=== PATIENT | female | born 1960 | race Caucasian/White ===

== ENCOUNTER → 2020-10-14 09:40 | Outpatient (BNVA) | payer OTHER, MEDICAID, SELFPAY | PROVIDERS: PCP Family Medicine Adult Medicine; Visit Provider Family Medicine Adult Medicine | DX: F32.9 Major depressive disorder, single episode, unspecified (principal); E66.01 Morbid (severe) obesity due to excess calories; F41.9 Anxiety disorder, unspecified; Z68.42 Body mass index [BMI] 45.0-49.9, adult; Z86.010 Personal history of colon polyps; K21.9 Gastro-esophageal reflux disease without esophagitis; K44.9 Diaphragmatic hernia without obstruction or gangrene; Z13.6 Encounter for screening for cardiovascular disorders; M79.7 Fibromyalgia | CPT/HCPCS: 80053; 80061; 83036; 84443; 85025 ==

== ENCOUNTER → 2020-12-30 09:04 | Outpatient (BNVA) | payer OTHER, SELFPAY | PROVIDERS: PCP Family Medicine Adult Medicine; Visit Provider Surgery | DX: Z20.822 Contact with and (suspected) exposure to COVID-19 (principal) | CPT/HCPCS: 87635 ==

== ENCOUNTER 2021-01-06 11:00 | Day surgery (SDC) | payer OTHER, MEDICAID, SELFPAY ==
[2021-01-04 10:29] VITALS: BMI 44.1
--- NOTE | 2021-01-06 11:15 | ANES.PREANE2 ---
Pre-Anesthetic Assessment Pre-Anesthetic Assessment: Height/Weight: Height 1.7 m Weight 122.924 kg Proposed Procedure: Operation Date: 01/06/21 12:30 Proposed Procedures p Colonoscopy 02415 Z86.010(Not Applicable) - Vishal Little MD Was Beta Flaco taken within 24 hours: N/A Was Clonidine taken within 24 hours: N/A Social: Social History: No alcohol and No tobacco Exam: Pre-Anes Outpt Exam: alert, oriented x 3, clear to auscultation bilaterally and regular rate & rhythm Airway: Submandibular: WNL Cervical ROM: WNL MP: 1 History/ROS: No significant complaints Pulmonary: Pulmonary: SOB CV/HEM: CV/HEM: None reported : : None reported Hepatic: Hepatic: None reported GI: GI: None reported Metabolic: Metabolic: DM and Hyperlipidemia Musc/skel: Musc/skel: None reported Neuropsych: Neuropsych: None reported Anesthetic Plan: ASA status: 3 Anesthesia: MAC Risk of > 500 ml blood loss (7ml/kg in children): No PFSH Anesthesia PFSH: Medical History (Updated 10/26/20 @ 08:50 by Vishal Little MD) Anxiety and depression COVID-19 DDD (degenerative disc disease) Fibromyalgia GERD (gastroesophageal reflux disease) Hiatal hernia Hx of colonic polyps Hyperlipidemia due to type 2 diabetes mellitus Hypothyroidism New onset type 2 diabetes mellitus Surgical History (Updated 10/26/20 @ 08:50 by Vishal iLttle MD) History of colonoscopy with polypectomy (~2015) History of esophagogastroduodenoscopy (EGD) (~2015) History of laparoscopic cholecystectomy History of tubal ligation S/P excision of lipoma Family History Mother Fibromyalgia Sister Fibromyalgia Other Asthma Social History Alcohol intake: current Alcohol intake frequency: holidays/special occasions only Household members: family Current occupational status: unemployed and disabled Data Anesthesia Cardiac Studies: No Data to Display
--- NOTE | 2021-01-06 11:23 | W.PM.OPSFHP ---
Same Day Surgery H&P Indication for Procedure/HPI DATE OF PROCEDURE: January 06, 2021 CHIEF COMPLAINT/INDICATIONFOR SURGICAL PROCEDURE: colon polyps PREOP DIAGNOSIS: colonoscopy PLANNED PROCEDRUE: Operation Date: 01/06/21 12:30 Proposed Procedures p Colonoscopy 31280 Z86.010(Not Applicable) - Vishal Little MD Medications/Allergies* Home Medications Medication Instructions Recorded Confirmed Type cholecalciferol (vitamin D3) 10 10 mcg PO DAILY 10/22/20 01/05/21 History mcg (400 unit) capsule liver extract 1 tab PO DAILY 10/22/20 01/05/21 History magnesium chloride 1 tab PO DAILY PRN 10/22/20 01/05/21 History potassium chloride 1 tab PO DAILY 10/22/20 01/05/21 History zinc acetate 1 tab PO DAILY 10/22/20 01/05/21 History Allergies/Adverse Reactions Allergy/AdvReac Type Severity Reaction Status Date / Time gabapentin AdvReac Unknown Verified 01/05/21 09:11 Pertinent History/Comorbid Conditions* Medical History (Updated 10/26/20 @ 08:50 by Vishal Little MD) Anxiety and depression COVID-19 DDD (degenerative disc disease) Fibromyalgia GERD (gastroesophageal reflux disease) Hiatal hernia Hx of colonic polyps Hyperlipidemia due to type 2 diabetes mellitus Hypothyroidism New onset type 2 diabetes mellitus Surgical History (Updated 10/26/20 @ 08:50 by Vishal Little MD) History of colonoscopy with polypectomy (~2015) History of esophagogastroduodenoscopy (EGD) (~2015) History of laparoscopic cholecystectomy History of tubal ligation S/P excision of lipoma Family History (Updated 10/14/20 @ 08:47 by Brigid Everett LPN) Fibromyalgia Mother Sister Asthma Social History Alcohol intake: current Alcohol intake frequency: holidays/special occasions only Household members: family Current occupational status: unemployed and disabled Pertinent Exam Findings alert, oriented x 3 and regular rate & rhythm Recommendations Surgery/Procedure today Coding Level of Care Code Acute Dixonac Operator for Gumarog Frederick
[2021-01-06 11:44] VITALS: BP 121/86; PULSE 107; RESP 20; TEMP 36.1; O2SAT 95
[2021-01-06] MEDS: sodium chloride 0.9% 1,000 ML 30 ML IV (11:54)
[2021-01-06 12:53] LABS: Glucose Point of Care 95 mg/dL (70-110)
[2021-01-06 13:27] VITALS: BP 98/66; PULSE 80; RESP 16; TEMP 36.1; O2SAT 96
[2021-01-06 13:36] VITALS: BP 106/84; PULSE 76; RESP 18; TEMP 36.3; O2SAT 98
== END 2021-01-06 14:10 | disposition home or self-care (01) ==
PROVIDERS: PCP Family Medicine Adult Medicine; Visit Provider Surgery
PROC: 0DJD8ZZ Inspection of Lower Intestinal Tract, Via Natural or Artificial Opening Endoscopic (ICD-10-PCS; CPT 45378; principal; 2021-01-06 12:30)
DX: Z86.010 Personal history of colon polyps (principal); D12.5 Benign neoplasm of sigmoid colon; D12.4 Benign neoplasm of descending colon; K21.9 Gastro-esophageal reflux disease without esophagitis; K57.30 Diverticulosis of large intestine without perforation or abscess without bleeding; K64.8 Other hemorrhoids; E11.9 Type 2 diabetes mellitus without complications; E03.9 Hypothyroidism, unspecified; M79.7 Fibromyalgia; Z90.49 Acquired absence of other specified parts of digestive tract; Z98.51 Tubal ligation status; Z82.69 Family history of other diseases of the musculoskeletal system and connective tissue
CPT/HCPCS: 36416; 45380; 45385; 82962; 88305; 96360; J2704; J7030

== ENCOUNTER → 2021-01-21 08:41 | Outpatient (BNVA) | payer OTHER, MEDICAID, SELFPAY | PROVIDERS: PCP Family Medicine Adult Medicine; Visit Provider Family Medicine Adult Medicine | DX: E11.69 Type 2 diabetes mellitus with other specified complication (principal); E78.5 Hyperlipidemia, unspecified; F41.9 Anxiety disorder, unspecified; F32.9 Major depressive disorder, single episode, unspecified; D49.2 Neoplasm of unspecified behavior of bone, soft tissue, and skin; E03.9 Hypothyroidism, unspecified; R94.4 Abnormal results of kidney function studies | CPT/HCPCS: 80053; 80061; 83036; 88304 ==

== ENCOUNTER → 2021-03-21 13:11 | Outpatient (BNVA) | payer MEDICAID, SELFPAY | PROVIDERS: PCP Family Medicine Adult Medicine; Referring Provider Family Medicine Adult Medicine; Visit Provider Specialist | DX: M25.551 Pain in right hip (principal) | CPT/HCPCS: 73502 ==

== ENCOUNTER → 2021-03-31 08:45 | Outpatient (BNVA) | payer MEDICAID, SELFPAY | PROVIDERS: PCP Family Medicine Adult Medicine; Visit Provider Orthopaedic Surgery | DX: M47.896 Other spondylosis, lumbar region (principal); M54.50 Low back pain, unspecified | CPT/HCPCS: 72110 ==

== ENCOUNTER → 2021-04-14 09:18 | Outpatient (BNVA) | payer MEDICAID, SELFPAY | PROVIDERS: PCP Family Medicine Adult Medicine; Visit Provider Anesthesiology Pain Medicine | DX: G89.29 Other chronic pain (principal); M47.816 Spondylosis without myelopathy or radiculopathy, lumbar region; M51.36 Other intervertebral disc degeneration, lumbar region; M53.3 Sacrococcygeal disorders, not elsewhere classified; M25.551 Pain in right hip; Z87.891 Personal history of nicotine dependence | CPT/HCPCS: 99205 ==

== ENCOUNTER → 2021-05-04 13:36 | Outpatient (BNVA) | payer MEDICAID, SELFPAY | PROVIDERS: PCP Family Medicine Adult Medicine; Visit Provider Anesthesiology Pain Medicine | DX: E11.9 Type 2 diabetes mellitus without complications (principal); Z87.891 Personal history of nicotine dependence; M47.816 Spondylosis without myelopathy or radiculopathy, lumbar region | CPT/HCPCS: 36416; 64493; 64494; 64495; 80053; 80061; 82962; 83036; 84443; J3490 ==

== ENCOUNTER 2021-05-12 10:27 | Outpatient (CLI) | payer MEDICAID, SELFPAY ==
--- NOTE | 2021-05-12 11:00 | MR_ITS ---
WS: [id number] MRI LUMBAR SPINE NONCONTRAST TECHNIQUE: Sagittal T1, T2 and STIR imaging. Axial T1 and T2 imaging. CLINICAL INFORMATION: M54.50 - Low back pain, unspecified COMPARISON: None. FINDINGS: Mild lumbar curve. No acute compression. No high-grade central canal stenosis. Mild disc bulging L3-L 4 L4-L5 and L5-S1. Mild disc bulging in the cervical spine at C4-C5 with mild central canal stenosis. L1-L2: Normal. L2-L3: No significant disc bulging. Mild facet arthropathy. Spinal canal and foramen are patent. L3-L4: Mild annular bulging. Mild to moderate facet arthropathy. Spinal canal and foramen are patent. L4-L5: Mild disc bulging with slight effacement of the ventral thecal sac. Moderate facet arthropathy . Small bilateral foraminal protrusions with mild LEFT greater than RIGHT foraminal narrowing. Slight impingement traversing LEFT L5 nerve root. Moderate facet arthropathy. L5-S1: Mild annular bulging with a tiny shallow central protrusion. Spinal canal and foramen are chinchilla nt. Mild facet arthropathy. Visualized pelvic bony structures: Normal. Paravertebral soft tissues: Normal. MR/MR lumbar spine wo con* [id number] IMPRESSION: 1. Mild lumbar curve. No acute compression. No high-grade central canal stenos is. 2. Mild annular bulging L4-L5 with slight impingement on the LEFT subarticular recess and traversing LEFT L5 nerve root. 3. Small bilateral foraminal protrusions L4-L5 with mild LEFT greater than RIG HT foraminal narrowing. 4. Moderate facet arthropathy L3-L4 and L4-L5. 5. Tiny shallow central protrusion L5-S1 6. Mild central canal stenosis in the cervical spine on basketball scout imaging with a s mall central protrusion at C4-C5.
== END 2021-05-12 10:28 | disposition home or self-care (01) ==
LOC: RAD 10:31
PROVIDERS: PCP Family Medicine Adult Medicine; Visit Provider Orthopaedic Surgery
DX: M51.26 Other intervertebral disc displacement, lumbar region (principal); M47.816 Spondylosis without myelopathy or radiculopathy, lumbar region; M51.27 Other intervertebral disc displacement, lumbosacral region; M48.02 Spinal stenosis, cervical region; M50.221 Other cervical disc displacement at C4-C5 level
CPT/HCPCS: 72148

== ENCOUNTER → 2021-05-23 10:03 | Outpatient (BNVA) | payer MEDICAID, SELFPAY | PROVIDERS: PCP Family Medicine Adult Medicine; Visit Provider Anesthesiology Pain Medicine | DX: M48.062 Spinal stenosis, lumbar region with neurogenic claudication (principal); M47.816 Spondylosis without myelopathy or radiculopathy, lumbar region; M51.36 Other intervertebral disc degeneration, lumbar region; M53.3 Sacrococcygeal disorders, not elsewhere classified; M25.559 Pain in unspecified hip; Z87.891 Personal history of nicotine dependence | CPT/HCPCS: 99214 ==

== ENCOUNTER 2021-07-20 08:10 | Day surgery (SDC) | payer MEDICAID, SELFPAY ==
[2021-07-15 09:30] VITALS: BMI 44.4
--- NOTE | 2021-07-15 10:49 | ANES.PREANE2 ---
Pre-Anesthetic Assessment Height/Weight: Height 1.7 m Weight 128.82 kg Preop Diagnosis: diagnostic Operation Date: 07/20/21 07:00 Proposed Procedures p Lumbar Decompression L4/5 63258/m48.062(Not Applicable) - Alex Vazquez DO Familial anesthetic complications: None Was Beta Flaco taken within 24 hours: N/A Was Clonidine taken within 24 hours: N/A Social Tobacco (tyler) and No alcohol Exam alert, oriented x 3 and regular rate & rhythm Airway Submandibular: within normal limits Cervical ROM: within normal limits Mallampati: Class II Dentition: chipped (lower) and false Pulmonary Chronic Obstructive Pulmonary Disease Chronic Renal Insufficiency Metabolic Diabetes Mellitus, Morbid Obesity and Thyroid Disease Musc/skel Fibromyalgia, Lower Back Pain and Osteoarthritis/DJD Neuropsych Anxiety Anesthetic Plan ASA status: 3 Anesthesia: General Medications/Allergies Home Medications Medication Instructions Recorded Confirmed Last Taken Type cholecalciferol (vitamin D3) 10 10 mcg PO DAILY 10/22/20 07/15/21 01/05/21 History mcg (400 unit) capsule liver extract 1 tab PO DAILY 10/22/20 07/15/21 01/05/21 History magnesium chloride 1 tab PO DAILY PRN 10/22/20 07/15/21 01/05/21 History zinc acetate 1 tab PO DAILY 10/22/20 07/15/21 01/05/21 History atorvastatin 40 mg tablet 40 mg PO DAILY #30 tab 01/21/21 07/15/21 Unknown Rx niacin 50 mg tablet 50 mg PO DAILY 01/21/21 07/15/21 Unknown History potassium chloride 1 tab PO DAILY PRN 01/21/21 07/15/21 Unknown History blood sugar diagnostic (Blood #50 ea 05/04/21 05/31/21 Unknown Rx Glucose Test) blood-glucose meter #1 ea 05/04/21 05/31/21 Unknown Rx lancets 30 gauge (BD Microtainer #100 ea 05/04/21 05/31/21 Unknown Rx Lancet) sertraline 50 mg tablet See Rx Instructions .ROUTE 05/31/21 07/15/21 Unknown Rx .COMPLEX #30 tab levothyroxine 25 mcg tablet 25 mcg PO DAILY #30 tab 07/14/21 07/15/21 Unknown Rx metformin 500 mg tablet 500 mg PO DAILY #30 tab 07/14/21 07/15/21 Unknown Rx Allergies Allergy/AdvReac Type Severity Reaction Status Date / Time gabapentin AdvReac Unknown Verified 05/31/21 11:36 [facility] Anesthesia Medical History Anxiety and depression COVID-19 DDD (degenerative disc disease) Fibromyalgia GERD (gastroesophageal reflux disease) Hiatal hernia Hip pain Hx of colonic polyps Hyperlipidemia due to type 2 diabetes mellitus Hypothyroidism New onset type 2 diabetes mellitus Surgical History History of colonoscopy with polypectomy (01/06/21) diverticulosis , sigmoid and descending polyps History of esophagogastroduodenoscopy (EGD) (~2015) History of laparoscopic cholecystectomy History of tubal ligation S/P excision of lipoma Family History Mother Fibromyalgia Sister Fibromyalgia Other Asthma Social History Smoking and tobacco status: former smoker Alcohol intake: current Alcohol intake frequency: holidays/special occasions only Household members: family Current occupational status: unemployed and disabled Data Anesthesia Cardiac Studies: No Data to Display
[2021-07-20] VITALS (11 sets, daily range): BP systolic 129–174; BP diastolic 67–107; PULSE 62–99; RESP 16–19; TEMP 36.3–36.9; O2SAT 95–100
--- NOTE | 2021-07-20 | XR_ITS ---
WS: [id number] Lumbar spine, C-arm fluoroscopy, 07/20/2021 Clinical Data: Spinal stenosis, lumbar region Comparison: None. Findings: Dr. Vazquez performed a lumbar decompression. XR/XR lumbar spine 1V port [id number] Impression: Lumbar decompression.
--- NOTE | 2021-07-20 | SCC_ITS ---
Procedure done: 1. L3/4 laminectomy with partial facetecotomy 2. L4/5 laminectomy with partial facetectomy 28.9 seconds of fluoroscopic guidance, for a cumulative dose of 13.31 mGy, was provided to Dr. Vazquez by the radiology department. C-arm images of the lumbar spine were saved for the patient's permanent record. [id number]
[2021-07-20 09:01] LABS: Glucose Point of Care 148 mg/dL (70-110)
[2021-07-20] MEDS: sodium chloride 0.9% 1,000 ML 30 ML IV (09:12)
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
--- NOTE | 2021-07-20 11:18 | SUR.PHASEI ---
1111 PT TO PACU 5 AWAKES , ORAL AIRWAY OUT, PT WITH GOOD RESP EFFORT, VSS MONITOR SR NO ECTOPY , PT LIFTS HEAD OFF BED EASILY,MOVES BILAT FEET TO COMMAND STRONGLY AND EQUAL, PT ASSISTS WITH LOG ROLL TO LT SIDE, LOWER BACK DRESSING D/I, BILAT SCDS ON , IV TO LT HAND #18 WITH NS 200ML UP AT MOD RATE PER GRAVITY, ID BRACELET TO RT WRIST, PT ID'D WITH 2 IDENTIFIERS.
--- NOTE | 2021-07-20 11:19 | P.PCN_ITS ---
PACU note Narrative: VSS, Good respiratory effort, report to SURGICAL INSTRUMENTS INSPECTOR Exam: awake
--- NOTE | 2021-07-20 11:19 | PM.PACU ---
PACU note Narrative: VSS, Good respiratory effort, report to ANIMAL HOSPITAL OFFICE SUPERVISOR Exam: awake
--- NOTE | 2021-07-20 11:26 | SUR.PHASEI ---
PT VERY AWAKE ALERT RESPONDS VERBALLY AND APPROPRIATELY, BILAT STRONG DORSAL EXTENSION FLEXATION TO FEET. VSS PT DENIES PAIN AND NAUSEA.
[2021-07-20] MEDS: fentaNYL 50 mcg/mL INJ 2mL IVP (11:35)
--- NOTE | 2021-07-20 11:44 | PM.OP ---
Operative Report Date of procedure: July 20, 2021 Pre-op diagnosis: Preop Diagnosis Lumbar stenosis with neurogenic claudication Post-op diagnosis: same Procedure done: 1. L3/4 laminectomy with partial facetecotomy 2. L4/5 laminectomy with partial facetectomy Surgeon: Alex Vazquez Estimated blood loss (mL): 10 Procedure: 1. L3/4 laminectomy with partial facetecotomy 2. L4/5 laminectomy with partial facetectomy Patient is brought to the operative suite. After undergoing anesthesia they are placed in the prone position. All areas of impingement are well padded. Patient is then prepped and draped in the normal sterile fashion. A skin incision is made over the L3/4 level. This is confirmed under c-arm guidance. A series of dilators are passed and the tubular retractor is docked on the L3 lamina. A bovie is used to clear the soft tissue off the lamina and the L 3/4 facet joint. A high speed sheridan is then used to perform the laminectomy and take down the medial aspect of the L 3/4 facet joint. A kerrison rongeure was then used to take down the remaining lamina and smooth the edge of the laminectomy up to the point where the ligamentum flavum attaches. Attention was then brought to the medial aspect of the facet joint. The remaining medial aspect of the superior and inferior aspect of the facet joint were taken down with the kerrison from the pedicle of L3 to L 4. The facet joint had significant hypertrophy. Attention was then brought to the Ligamentum Flavum. The ligament was taken down from the lamina of L3 to L4 and out medially to the remaining facet joint. The ligament was thick. The dura was then exposed. The dura was in good repair. The L3 nerve was then traced with a curette out the L3/4 foramen and found to be adequately decompressed. The L4 nerve was traced with a curette around the L4 pedicle. The lateral recess was opened with a kerrison helping to further decompress the L4 nerve. Wound is then irrigated copiously with saline and surgiflo is used to stop any bleeding. The tubular retractor is removed A skin incision is made over the L4/5 level. This is confirmed under c-arm guidance. A series of dilators are passed and the tubular retractor is docked on the L4 lamina. A bovie is used to clear the soft tissue off the lamina and the L 4/5 facet joint. A high speed sheridan is then used to perform the laminectomy and take down the medial aspect of the L 4/5 facet joint. A kerrison rongeure was then used to take down the remaining lamina and smooth the edge of the laminectomy up to the point where the ligamentum flavum attaches. Attention was then brought to the medial aspect of the facet joint. The remaining medial aspect of the superior and inferior aspect of the facet joint were taken down with the kerrison from the pedicle of L4 to L 5. The facet joint had significant hypertrophy. Attention was then brought to the Ligamentum Flavum. The ligament was taken down from the lamina of L4 to L5 and out medially to the remaining facet joint. The ligament was thick. The dura was then exposed. The dura was in good repair. The L4 nerve was then traced with a curette out the L4/5 foramen and found to be adequately decompressed. The L5 nerve was traced with a curette around the L5 pedicle. The lateral recess was opened with a kerrison helping to further decompress the L5 nerve. Wound is then irrigated copiously with saline and surgiflo is used to stop any bleeding. The tubular retractor is removed and the wound is closed with vicryl and monocryl suture. Glue is then used to protect the wound. A sterile dressing is then placed. Patient was then placed in the supine position and transferred to the PACU in stable condition.
[2021-07-20] MEDS: HYDROcodone-acetaminophen 5-325 mg Tablet 1 TAB PO (12:28)
--- NOTE | 2021-07-20 13:47 | ANE.PACU2 ---
Inpatient post-anesthesia follow up: Airway intact: Yes Vital signs: Temperature 98.1 F Pulse Rate 71 Respiratory Rate 16 Blood Pressure 129/83 Pulse Oximetry 98 Oxygen Delivery Me thod Room Air Oxygen Flow Rate 8 Fraction of Inspir ed Oxygen Hydration adequate: Yes Nausea and vomiting: No Pain level: 2 Mental status: Baseline
== END 2021-07-20 12:40 | disposition home or self-care (01) ==
PROVIDERS: PCP Family Medicine Adult Medicine; Visit Provider Orthopaedic Surgery
PROC: (CPT 63005; principal; 2021-07-20 09:25)
DX: M48.062 Spinal stenosis, lumbar region with neurogenic claudication (principal); F41.9 Anxiety disorder, unspecified; F32.9 Major depressive disorder, single episode, unspecified; M79.7 Fibromyalgia; Z86.16 Personal history of COVID-19; E78.5 Hyperlipidemia, unspecified; E03.9 Hypothyroidism, unspecified; Z87.891 Personal history of nicotine dependence; E66.01 Morbid (severe) obesity due to excess calories; Z68.41 Body mass index [BMI] 40.0-44.9, adult; Z79.84 Long term (current) use of oral hypoglycemic drugs
CPT/HCPCS: 63047; 63048; 36416; 72020; 76000; 82962; A7015; J0690; J1100; J2250; J2370; J2405; J2704; J2710; J3010; J3490; J7030

== ENCOUNTER → 2021-08-04 10:37 | Outpatient (BNVA) | payer MEDICAID, SELFPAY | PROVIDERS: PCP Family Medicine Adult Medicine; Visit Provider Orthopaedic Surgery | DX: Z47.89 Encounter for other orthopedic aftercare (principal); Z98.890 Other specified postprocedural states | CPT/HCPCS: 99024 ==

== ENCOUNTER → 2021-09-01 10:55 | Outpatient (BNVA) | payer MEDICAID, SELFPAY | PROVIDERS: PCP Family Medicine Adult Medicine; Visit Provider Orthopaedic Surgery | DX: Z47.89 Encounter for other orthopedic aftercare (principal); Z98.890 Other specified postprocedural states | CPT/HCPCS: 99024; 99212; 99213 ==

== ENCOUNTER → 2021-09-21 15:14 | Outpatient (BNVA) | payer MEDICAID, SELFPAY | PROVIDERS: PCP Family Medicine Adult Medicine; Visit Provider Family Medicine Adult Medicine | DX: E11.69 Type 2 diabetes mellitus with other specified complication (principal); E78.5 Hyperlipidemia, unspecified; F41.9 Anxiety disorder, unspecified; F32.9 Major depressive disorder, single episode, unspecified; E03.9 Hypothyroidism, unspecified; E66.01 Morbid (severe) obesity due to excess calories; Z68.42 Body mass index [BMI] 45.0-49.9, adult | CPT/HCPCS: 83036 ==

== ENCOUNTER → 2021-11-15 15:40 | Outpatient (BNVA) | payer MEDICAID, SELFPAY | PROVIDERS: PCP Family Medicine Adult Medicine; Visit Provider Orthopaedic Surgery | DX: M16.11 Unilateral primary osteoarthritis, right hip (principal) | CPT/HCPCS: 73502 ==

== ENCOUNTER 2024-08-20 11:04 | Outpatient (CLI) | payer MEDICAID, SELFPAY ==
--- NOTE | 2024-08-20 11:22 | XR_ITS ---
WS: [id number] Lumbar spine, 3 views, 08/20/2024 Clinical Data: LOW BACK PAIN Comparison: Lumbar spine, 03/31/2021 Findings: No compression fractures or subluxation is seen. There is disc narrowing at L4- L5. There is facet joint arthritis from L3-L4 through L5-S1. The transverse processes and SI joints are normal. Osteoarthritis at L3-L5. XR/XR lumbar spine 2-3V* [id number] Impression: 1. Degenerative disc narrowing at L4-L5. 2. Facet joint arthritis L3-L4 through L5-S1 and osteoarthritis L3-L5.
--- NOTE | 2024-08-20 11:22 | XR_ITS ---
WS: [id number] Right shoulder, 2 views, 08/20/2024 Clinical Data: R SHOULDER PAIN Comparison: None. Findings: No fractures or dislocations are seen. There is irregularity of the glenoid rim. The AC joint is normal. The adjacent right clavicle, right scapula and ribs are normal. The soft tissues are unremarkable. XR/XR shoulder RT min 2V* [id number] Impression: Osteoarthritis of the right glenohumeral joint with irregularity of the glenoid rim.
== END 2024-08-20 11:05 | disposition home or self-care (01) ==
PROVIDERS: PCP Family Medicine; Visit Provider Family Medicine
DX: M19.011 Primary osteoarthritis, right shoulder (principal); M51.369 Other intervertebral disc degeneration, lumbar region without mention of lumbar back pain or lower extremity pain; M47.896 Other spondylosis, lumbar region; M47.897 Other spondylosis, lumbosacral region; R93.7 Abnormal findings on diagnostic imaging of other parts of musculoskeletal system
CPT/HCPCS: 72100; 73030